=== PATIENT | male | born 2000 | race African-American/Black ===

== ENCOUNTER 2021-12-03 19:18 | Emergency (ER) | payer SELFPAY ==
[~2021-12-03] VITALS: Ht 180.3 cm; Wt 69.8 kg
[2021-12-03] MEDS ORDERED: DIPHENHYDRAMINE 50MG CAPSULE PO ONE (20:15)
[2021-12-03 21:50] VITALS: BP 112/80
== END 2021-12-03 21:50 | disposition home or self-care (01) ==
LOC: ER 19:18
DX: R21 Rash and other nonspecific skin eruption (principal)
CPT/HCPCS: 99282; Q0163